=== PATIENT | female | born 1995 | race Caucasian/White ===

== ENCOUNTER 2016-07-19 08:37 | Emergency (ER) | payer OTHER | END 2016-07-19 11:45 | disposition home or self-care (01) | LOC: ER1 08:37 | PROVIDERS: Physician Assistant | DX: O20.8 Other hemorrhage in early pregnancy (principal); Z3A.01 Less than 8 weeks gestation of pregnancy | CPT/HCPCS: 36415; 81001; 84702; 84703; 85014; 85018; 86900; 86901; 96360; 99284 ==